=== PATIENT | female | born 1980 | race Caucasian/White ===

== ENCOUNTER → 2016-12-22 | Outpatient (CLI) | payer OTHER ==
[~2016-12-22] MED LIST: DULO60CA6 PO; FLUT9.9S NS; HYDR-2766 PO; LEVO200T PO; LIDO700A4 TP; PREG150C PO; TIZA4TAB PO; ZOLP10TA PO
== END | disposition home or self-care (01) ==
LOC: RT 10:25
PROVIDERS: ATTEND Family Medicine
DX: G47.33 Obstructive sleep apnea (adult) (pediatric) (principal)
CPT/HCPCS: G0399

== ENCOUNTER → 2017-07-08 | Day surgery (SDC) | payer OTHER ==
[~2017-07-08] MED LIST changes: -DULO60CA6 PO; -FLUT9.9S NS; -HYDR-2766 PO; -LEVO200T PO; -LIDO700A4 TP; +LIDOCAINE 2% 100 MG/5 ML SYRINGE.; -PREG150C PO; +PROPOFOL 20 ML IV; -TIZA4TAB PO; -ZOLP10TA PO
[2017-07-08] MEDS: IV RINGERS,LACTATED 1000ML 1,000 ML IV (12:16)
== END | disposition home or self-care (01) ==
LOC: SURG 11:49
DX: K29.50 Unspecified chronic gastritis without bleeding (principal); Z79.899 Other long term (current) drug therapy; Z98.84 Bariatric surgery status
CPT/HCPCS: 43235; J2704

== ENCOUNTER → 2017-12-06 | Outpatient (CLI) | payer OTHER ==
[2017-07-31 16:45] VITALS: BP 114/73
[~2017-12-06] MED LIST changes: +BARIUM SULFATE 340 GM SUSPENSION. PO ONE; +BARIUM SULFATE 60% 355 ML SUSP PO ONE; +BUPR150T6 PO; +CHOL500016 PO; +DIPH25CA58 PO; +DOCU-109 PO; +DULO60CA6 PO; +FLUT9.9S NS; +HYDR-2766 PO; +IBUP-1060 PO; +LEVO200T PO; +LIDO700A4 TP; -LIDOCAINE 2% 100 MG/5 ML SYRINGE.; +OMEP40CA5 PO; +OXYC1TAB7 PO; +PREG150C PO; -PROPOFOL 20 ML IV; +SIMETHICONE/SOD BICARB/CITRIC ACID PACKET. PO ONE; +SUMA100T4 PO; +TIZA4TAB PO; +ZOLP10TA PO
--- NOTE | 2017-12-06 09:15 | RAD ---
Esophagram, 12/06/2017: History: Dysphasia, obstructive symptoms The study was performed utilizing thin liquid barium. 3.6 minutes of fluoroscopy time was utilized. 11 static and dynamic fluoroscopic spot sequences were recorded. The swallowing mechanism is intact. The esophageal peristalsis is unremarkable. A lap band device is evident related to the proximal stomach. There is obstruction to flow of the barium into the stomach at this level. On the initial upright and recumbent positions there was no visible flow of contrast into the stomach. There is associated stasis of the barium mixed with other retained debris in the distal esophagus. Delayed AP and lateral views of the upper abdomen did demonstrate eventual passage of a small amount of the barium into the stomach and duodenum. The amount of barium extending into this region is not adequate for diagnostic purposes. IMPRESSION: High-grade proximal gastric obstruction at the level of the lap band.
== END | disposition home or self-care (01) ==
LOC: RAD 08:06
PROVIDERS: ATTEND Internal Medicine Gastroenterology
DX: K95.09 Other complications of gastric band procedure (principal); C73 Malignant neoplasm of thyroid gland; E11.9 Type 2 diabetes mellitus without complications; F32.9 Major depressive disorder, single episode, unspecified; E03.9 Hypothyroidism, unspecified; Z98.84 Bariatric surgery status; Z79.899 Other long term (current) drug therapy
CPT/HCPCS: 74220

== ENCOUNTER → 2019-10-12 | Outpatient (CLI) | payer OTHER ==
[2017-07-31 16:45] VITALS: BP 114/73
[~2019-10-12] MED LIST changes: -BARIUM SULFATE 340 GM SUSPENSION. PO ONE; -BARIUM SULFATE 60% 355 ML SUSP PO ONE; -HYDR-2766 PO; +HYDR-2769 PO; +OMEP40CA45 PO; -OMEP40CA5 PO; -SIMETHICONE/SOD BICARB/CITRIC ACID PACKET. PO ONE; -TIZA4TAB PO; +TIZA4TAB2 PO
== END | disposition home or self-care (01) ==
LOC: LAB 15:22
PROVIDERS: ATTEND Internal Medicine Pulmonary Disease
DX: Z20.828 Contact with and (suspected) exposure to other viral communicable diseases (principal)
CPT/HCPCS: C9803; U0003

== ENCOUNTER → 2020-04-17 | Outpatient (CLI) | payer OTHER ==
[2017-07-31 16:45] VITALS: BP 114/73
[~2020-04-17] MED LIST changes: +BUPR150T21 PO; -BUPR150T6 PO; -OMEP40CA45 PO; +OMEP40CA7 PO
--- NOTE | 2020-04-19 12:49 | RAD ---
DATE: 04/17/2020 8:50 AM EXAM: MAMMO [facility]ANDA SCREENING BILATERAL HISTORY: Screening COMPARISON: None currently available. This will serve as a new baseline. Bilateral CC and MLO views of the breasts were performed. Bilateral breast tomosynthesis was performed in CC and MLO projections. This study was interpreted with the benefit of Computerized Aided Detection (CAD). FINDINGS: Breast Density: SCATTERED The breast parenchyma shows scattered fibroglandular densities. Breast parenchyma level B No suspicious masses, microcalcifications or architectural distortion is present to suggest malignancy in either breast. The visualized axillae are unremarkable. IMPRESSION: No mammographic evidence of malignancy. BI-RADS CATEGORY: 1 NEGATIVE RECOMMENDED FOLLOW-UP: 12M 12 MONTH FOLLOW-UP Annual screening mammography is recommended, unless clinically indicated sooner based on symptoms or change in physical exam. PQRS compliance statement: Patient information was entered into a reminder system with a target due date for the next mammogram. Mammography is a sensitive method for finding small breast cancers, but it does not detect them all and is not a substitute for careful clinical examination. A negative mammogram does not negate a clinically suspicious finding and should not result in delay in biopsying a clinically suspicious abnormality. "Our facility is accredited by the [employer] Mammography Program."
== END ==
LOC: MAMMO 09:16
PROVIDERS: ATTEND Nurse Practitioner Family
DX: Z12.31 Encounter for screening mammogram for malignant neoplasm of breast (principal)
CPT/HCPCS: 77063; 77067